=== PATIENT | male | born 1975 | race Caucasian/White ===

== ENCOUNTER → 2019-01-30 08:46 | Outpatient (CLI) | payer BC ==
--- NOTE | 2019-01-30 10:10 | NUR ---
TIME OUT PERFORMED @ [address] WOOD AND CORTEZ LARA RTR. PATIENT, , & PROCEDURE VERIFIED
== END | disposition home or self-care (01) ==
LOC: D.RAD 01-23 10:00
PROVIDERS: ATTEND Orthopaedic Surgery
DX: M25.541 Pain in joints of right hand (principal)